=== PATIENT | male | born 1995 | race African-American/Black ===

== ENCOUNTER 2017-07-22 09:54 | Emergency (ER) | payer SELFPAY ==
[~2017-07-22] VITALS: Ht 172.7 cm; Wt 68.0 kg
[2017-07-22 10:02] VITALS: BP 130/83; PULSE 77; RESP 18; TEMP 97.8; O2SAT 100
--- NOTE | 2017-07-22 10:23 | PD ---
HPI Chief Complaint: Flank/Kidney Pain Time Seen by Provider: 10:16 Travel History International Travel<30 days: No Contact w/Intl Traveler<30days: No Traveled to known affect area: No History of Present Illness HPI This is a 22 year old male who presents to the emergency department with lower left flank pain, all of a sudden, starting this morning, constant, sharp, excruciating. Pt denies any nausea but did vomit once this morning. Pt. also reports some sweating but denies chills. (-) hematuria, dysuria, diarrhea or constipation. PFSH Past Medical History Medical History: Denies Significant Hx Social History Alcohol Use: Yes (social) Tobacco Use: No Substance Use: Yes (marijuana) Allergies-Medications (Allergen,Severity, Reaction): Coded Allergies: No Known Allergies (Unverified , 07/22/17) Reported Meds & Prescriptions Reported Meds & Active Scripts Active Zofran Odt (Ondansetron Odt) 4 Mg Tab 4 Mg SL Q6HR PRN Ibuprofen 600 Mg Tab 600 Mg PO Q6H PRN Review of Systems Except as stated in HPI: all other systems reviewed are Neg Physical Exam Narrative GENERAL:Well appearing, no acute distress SKIN: Focused skin assessment warm and dry. HEAD: Atraumatic. Normocephalic. EYES: Pupils equal and round. No injection or drainage. ENT: Moist mucous membranes NECK: Trachea midline. CARDIOVASCULAR: Regular rate and rhythm. No murmur appreciated. RESPIRATORY: Clear to auscultation. Breath sounds equal bilaterally. GASTROINTESTINAL: Abdomen soft, non-tender, nondistended. : left CVA tenderness MUSCULOSKELETAL: No obvious deformities. NEUROLOGICAL: Awake and alert. No obvious cranial nerve deficits. Moving all extremities PSYCHIATRIC: Appropriate mood and affect; insight and judgment normal. Data Data Last Documented VS Vital Signs Date Time Temp Pulse Resp B/P (MAP) Pulse Ox O2 Delivery O2 Flow Rate FiO2 07/22/17 10:02 97.8 77 18 130/83 (99) 100 Orders Orders Complete Blood Count With Diff (07/22/17 10:24) Comprehensive Metabolic Panel (07/22/17 10:24) Urinalysis - C+S If Indicated (07/22/17 10:24) ^ Insert Iv (07/22/17 10:24) Ketorolac Inj (Toradol Inj) (07/22/17 10:30) Sodium Chlor 0.9% 1000 Ml Inj (Ns 1000 M (07/22/17 10:30) Ct Abd/Pel W/O Iv Contrast (07/22/17 ) Ondansetron Inj (Zofran Inj) (07/22/17 11:00) Acetamin-Hydrocod 325-5 Mg ([place] 5-325 (07/22/17 12:00) Ed Discharge Order (07/22/17 11:57) Labs Laboratory Tests Test 07/22/17 10:40 07/22/17 10:55 Urine Color YELLOW Urine Turbidity CLEAR Urine pH 6.5 Urine Specific [place] 1.020 Urine Protein TRACE mg/dL Urine Glucose (UA) NEG mg/dL Urine Ketones TRACE mg/dL Urine Occult Blood LARGE Urine Nitrite NEG Urine Bilirubin NEG Urine Urobilinogen LESS THAN 2.0 MG/DL Urine Leukocyte Esterase NEG Urine RBC /hpf Urine WBC 3 /hpf Urine Squamous Epithelial Cells <1 /hpf Urine Calcium Oxalate Crystals RARE /hpf Urine Bacteria FEW /hpf Urine Mucus FEW /lpf Microscopic Urinalysis Comment CULT NOT INDICATED White Blood Count 13.0 TH/MM3 Red Blood Count 4.11 MIL/MM3 Hemoglobin 13.5 GM/DL Hematocrit 40.3 % Mean Corpuscular Volume 98.0 FL Mean Corpuscular Hemoglobin 32.8 PG Mean Corpuscular Hemoglobin Concent 33.5 % Red Cell Distribution Width 12.5 % Platelet Count 226 TH/MM3 Mean Platelet Volume 8.0 FL Neutrophils (%) (Auto) 86.5 % Lymphocytes (%) (Auto) 8.2 % Monocytes (%) (Auto) 4.8 % Eosinophils (%) (Auto) 0.2 % Basophils (%) (Auto) 0.3 % Neutrophils # (Auto) 11.2 TH/MM3 Lymphocytes # (Auto) 1.1 TH/MM3 Monocytes # (Auto) 0.6 TH/MM3 Eosinophils # (Auto) 0.0 TH/MM3 Basophils # (Auto) 0.0 TH/MM3 CBC Comment DIFF FINAL Differential Comment Blood Urea Nitrogen 13 MG/DL Creatinine 1.29 MG/DL Random Glucose 167 MG/DL Total Protein 7.6 GM/DL Albumin 4.1 GM/DL Calcium Level 8.9 MG/DL Alkaline Phosphatase 65 U/L Aspartate Amino Transf (AST/SGOT) 44 U/L Alanine Aminotransferase (ALT/SGPT) 39 U/L Total Bilirubin 0.5 MG/DL Sodium Level 138 MEQ/L Potassium Level 4.8 MEQ/L Chloride Level 103 MEQ/L Carbon Dioxide Level 28.0 MEQ/L Anion Gap 7 MEQ/L Estimat Glomerular Filtration Rate 70 ML/MIN MDM Medical Decision Making Medical Screen Exam Complete: Yes Emergency Medical Condition: Yes Interpretation(s) afebrile, no tachycardia, normotensive leukocytosis, 86% neutrophils electrolytes within normal limits urinalysis: large amount of blood ct abdomen pelvis: 1mm stone left uvj, likely etiology of symptoms Differential Diagnosis Nephrolithiasis, pyelonephritis, pancreatitis, gastritis Narrative Course 22-year-old male who presents to the emergency department with left flank pain classic for kidney stone. Labs demonstrate a mild leukocytosis likely stress response. Urinalysis demonstrates blood but no obvious infection. CT abdomen pelvis demonstrates a 1 mm stone at the left UVJ which is likely the culprit etiology of his symptoms. Patient will be discharged with pain control, antiemetics and urology follow-up. Diagnosis Primary Impression: Nephrolithiasis Referrals: Barrett Guajardo MD Patient Instructions: General Instructions Additional Instructions: If you develop severe pain, inability to eat or drink, or fever return to the emergency department. Use a strainer to try to catch your stone. Take lortab or ibuprofen as needed for pain, and continue taking zofran as needed for nausea. Follow up with urology as soon as possible. Med/Other Pt SpecificInfo: Prescription(s) given Scripts Hydrocodone-Acetaminophen ([place]) 5 Mg-325 Mg Tab 1 TAB PO Q6H Y for PAIN, #6 TAB 0 Refills Prov: Lupe Mansfield MD 07/22/17 Ondansetron Odt (Zofran Odt) 4 Mg Tab 4 MG SL Q6HR Y for Nausea/Vomiting, #15 TAB 0 Refills Prov: Lupe Mansfield MD 07/22/17 Ibuprofen (Ibuprofen) 600 Mg Tab 600 MG PO Q6H Y for Pain/Inflammation, #20 TAB 0 Refills Prov: Lupe Mansfield MD 07/22/17 Disposition: 01 DISCHARGE HOME Condition: Stable Lupe Mansfield MD Jul 22, 2017 10:23
[2017-07-22] MEDS ORDERED: KETOROLAC TROMETHAMINE 30 MG/ML (IVP) VIAL IV PUSH ONE (10:30)
[2017-07-22] MEDS ORDERED: SODIUM CHLOR 0.9% 1000 ML INJ 1,000 ML IV SCH (10:30)
[2017-07-22] MEDS ORDERED: ONDANSETRON HCL 4 MG/2 ML VIAL IV PUSH ONE (11:00)
[2017-07-22 11:15] LABS: AUTOMATED NEUTROPHIL # 11.2 TH/MM3 (1.8-7.7); BASOPHIL % 0.3 % (0.0-2.0); EOSINOPHIL % 0.2 % (0.0-4.0); HEMATOCRIT 40.3 % (39.0-51.0); HEMOGLOBIN 13.5 GM/DL (13.0-17.0); LYMPH % 8.2 % (9.0-44.0); LYMPHOCYTE # 1.1 TH/MM3 (1.0-4.8); MEAN CORPUSCULAR HEMOGLOBIN 32.8 PG (27.0-34.0); MEAN CORPUSCULAR HGB CONC 33.5 % (32.0-36.0); MONO % 4.8 % (0.0-8.0); MONOCYTE # 0.6 TH/MM3 (0-0.9); NEUT % 86.5 % (16.0-70.0); PLATELET COUNT 226 TH/MM3 (150-450); RED BLOOD COUNT 4.11 MIL/MM3 (4.50-5.90); RED CELL DISTRIBUTION WIDTH 12.5 % (11.6-17.2)
[2017-07-22 11:22] LABS: BILIRUBIN, URINE NEG (NEG); BLOOD, URINE LARGE (NEG); CALCIUM OXALATE CRYSTALS,URINE RARE /hpf; GLUCOSE,URINE NEG (NEG); KETONE, URINE TRACE mg/dL (NEG); MUCUS URINE FEW /lpf (OCC); NITRITE,URINE NEG (NEG); PH, URINE 6.5 (5.0-8.5); SQUAMOUS EPITHELIAL CELL URINE <1 /hpf (0-5); URINE COLOR YELLOW (YELLW/STRAW); URINE LEUKOCYTE ESTERASE NEG (NEG)
[2017-07-22 11:28] LABS: ALKALINE PHOSPHATASE 65 U/L (45-117); TOTAL BILIRUBIN ADULT 0.5 MG/DL (0.2-1.0); TOTAL PROTEIN 7.6 GM/DL (6.4-8.2)
[2017-07-22 11:29] LABS: BACTERIA, URINE FEW /hpf
[2017-07-22 11:39] LABS: ALBUMIN 4.1 GM/DL (3.4-5.0); ALT (GPT) 39 U/L (12-78); AST (GOT) 44 U/L (15-37); BLOOD UREA NITROGEN 13 MG/DL (7-18); CALCIUM 8.9 MG/DL (8.5-10.1); CHLORIDE 103 MEQ/L (98-107); CREATININE 1.29 MG/DL (0.60-1.30); GLOMERULAR FILTRATION RATE 70 ML/MIN (>89); GLUCOSE,RANDOM 167 MG/DL (74-106); SODIUM (NA) 138 MEQ/L (136-145)
--- NOTE | 2017-07-22 11:42 | RADRPT ---
EXAM DATE/TIME: 07/22/2017 11:20 [facility] COMPARISON: No previous studies available for comparison. INDICATIONS : Left flank pain today. ORAL CONTRAST: No oral contrast ingested. RADIATION DOSE: 7.28 CTDIvol (mGy) MEDICAL HISTORY : None SURGICAL HISTORY : None. ENCOUNTER: Initial ACUITY: 1 day PAIN SCALE: 7/10 LOCATION: Left flank TECHNIQUE: Volumetric scanning of the abdomen and pelvis was performed. Using automated exposure control and ad justment of the mA and/or kV according to patient size, radiation dose was kept as low as reasonably achievable to obtain optimal diagnostic quality images. DICOM format image data is available electro nically for review and comparison. FINDINGS: Lung spaces are clear. The liver, spleen, pancreas and gallbladder are unremarkable Right kidney: Several small one or 2 very calcifications right kidney Left kidney: Similar multiple small calcifications right kidney largest measuring 2 mm. There is 1 mm calcificati on left UVJ. There is no intracranial adenopathy In the pelvis scattered phleboliths are noted. Degenerative changes in the lower lumbar spine. CONCLUSION: Numerous small renal stones as above with 1 mm stone left UVJ. Scattered phleboliths are present in the pelvis. Robson Cruz MD FACR on July 22, 2017 at 11:37 Board Certified Radiologist. This report was verified electronically.
[2017-07-22] MEDS ORDERED: IBUP-232 PO (11:48)
[2017-07-22] MEDS ORDERED: ZOFR4TAB3 SL (11:48)
[2017-07-22] MEDS ORDERED: NORC5TAB PO (11:58)
[2017-07-22] MEDS ORDERED: ACETAMINOPHEN/HYDROcodone 325 MG/5 MG TAB PO ONE (12:00)
[2017-07-22 12:29] VITALS: BP 135/71
== END 2017-07-22 12:30 | disposition home or self-care (01) ==
LOC: NEPD 09:54
DX: N20.0 Calculus of kidney (principal)
CPT/HCPCS: 74176; 80053; 81001; 85025; 96361; 96374; 96375; 99284; J1885; J2405; J7030